=== PATIENT | female | born 1970 | race Hispanic/Latino ===

== ENCOUNTER 2021-07-03 02:11 | Observation (INO) | payer SELFPAY ==
[2021-07-03 03:08] LABS: #Eosinphils 0.1 thou/uL (0.0-0.7); #Monocytes 0.4 thou/uL (0.11-0.59); #Neutrophils 8.1 thou/uL (1.40-6.50); %Eosinophils 0.8 % (0.0-10.0); %Lymphocytes 18.6 % (21.0-51.0); %Monocytes 4.1 % (0.0-10.0); %Neutrophils 76.4 % (42.0-75.0); Hemoglobin 12.9 g/dL (12.0-16.0); Mean Corpuscular HGB CONC 33.4 g/dL (32.0-36.0); Mean Corpuscular Volume 89.9 fL (78.0-98.0); Mean Platelet Volume 6.6 fL (7.4-10.4); Platelet Count 286 thou/uL (130-400); RBC Distribution Width 12.9 % (11.5-14.5); Red Blood Cell (RBC) Count 4.31 mill/uL (4.20-5.40); White Blood Cell (WBC) Count 10.6 thou/uL (4.8-10.8)
[2021-07-03] MEDS ORDERED: Ondansetron PF 4 MG/2 ML Vial ONE ×2 (03:21→13:46)
[2021-07-03] MEDS ORDERED: Morphine 4 MG/ML VIAL ONE (03:21)
[2021-07-03 03:24] LABS: ALT (SGPT) 102 U/L (8-55); AST (SGOT) 192 U/L (5-34); Albumin 4.1 g/dL (3.5-5.0); Alkaline Phosphatase 113 U/L (40-110); Anion Gap 16 mmol/L (10-20); BUN (Urea Nitrogen) 26 mg/dL (9.8-20.1); Bilirubin, Total 0.7 mg/dL (0.2-1.2); Calc. Creatinine Clearance 0 mL/min (70-130); Calcium 9.1 mg/dL (7.8-10.44); Carbon Dioxide 23 mmol/L (22-29); Chloride 102 mmol/L (98-107); Globulin 3.3 g/dL (2.4-3.5); Glucose 168 mg/dL (70-105); Potassium 3.7 mmol/L (3.5-5.1); Protein, Total 7.4 g/dL (6.0-8.3); Sodium 137 mmol/L (136-145)
[2021-07-03 03:45] LABS: Bacteria/HPF None Seen HPF (None Seen); Bilirubin Negative (Negative); Blood, Urine Negative (Negative); Calcium Oxalate Crystals 4+ HPF (None Seen); Clarity Clear (Clear); Glucose, Urine (Dipstick) Normal (Negative); Ketone, Urine Negative (Negative); Leukocyte 75 Leu/uL (Negative); Mucous/LPF 3+ LPF (<2+); Nitrite Negative (Negative); Protein, Urine (Dipstick) 20 mg/dL (Neg-Trace); RBC/HPF 0-3 HPF (0-3); Specific Gravity, Urine 1.031 (1.002-1.036); Squamous Epithelial 0-3 HPF (0-3); Urobilinogen Normal mg/dL (Less than 2); WBC/HPF 0-3 HPF (0-3)
[2021-07-03] MEDS ORDERED: Levofloxacin 500 mg/D5W 100 ml Premix Bag ONE (04:40)
[2021-07-03] MEDS ORDERED: Ketorolac Tromethamine 30 MG/ML VIAL IVP PRN ×2 (04:44→14:29)
[2021-07-03] MEDS ORDERED: Ondansetron PF 4 MG/2 ML Vial IVP PRN ×2 (04:45→11:24)
[2021-07-03] MEDS ORDERED: Ondansetron ODT 4 MG TAB SL PRN (04:45)
[2021-07-03] MEDS ORDERED: Morphine 4 MG/ML VIAL SLOW IVP PRN (04:45)
[2021-07-03 05:54] LABS: SARS-CoV-2 NAA Rapid Test Not Detected (NotDetected)
[2021-07-03 06:33] VITALS: BMI 35.8
[2021-07-03] MEDS: Sodium Chloride 0.9% 1,000 ML IV SCH ×2 (08:19→17:20)
[2021-07-03] MEDS ORDERED: Ondansetron ODT 8 MG TAB PO PRN (11:24)
[2021-07-03] MEDS ORDERED: Ketorolac Tromethamine 30 MG/ML VIAL IVP SCH (11:30)
[2021-07-03] MEDS ORDERED: Iopamidol 30 ML ONE (12:54)
[2021-07-03] MEDS ORDERED: Lidocaine 1% w/Epinephrine 1:100K 20 ML VIAL ONE (12:54)
[2021-07-03] MEDS ORDERED: Bupivacaine 0.25% 10 ML VIAL ONE (12:54)
[2021-07-03] MEDS ORDERED: Midazolam HCl 2 mg/2 ml Vial ONE ×2 (13:19→14:52)
[2021-07-03] MEDS ORDERED: Lidocaine 2% Jelly 5 ML TUBE ONE (13:20)
[2021-07-03] MEDS ORDERED: HYDROmorphone 0.5 MG/0.5 ML SYRINGE ONE (13:20)
[2021-07-03] MEDS ORDERED: fentaNYL Citrate/PF 100 MCG/2 ML SYRINGE ONE (13:20)
[2021-07-03] MEDS ORDERED: PROPOFOL 200 MG/20 ML VIAL ONE (13:46)
[2021-07-03] MEDS ORDERED: Rocuronium Bromide 10 MG/ML (10ML VIAL) ONE (13:46)
[2021-07-03] MEDS ORDERED: Lidocaine 1% PF 5 ML VIAL ONE (13:46)
[2021-07-03] MEDS ORDERED: Dexamethasone 20 MG/5 ML VIAL ONE (13:46)
[2021-07-03] MEDS ORDERED: Promethazine HCl 25 MG/ML VIAL IVPB PRN (14:03)
[2021-07-03] MEDS ORDERED: Promethazine HCl 25 MG/ML VIAL IM PRN (14:03)
[2021-07-03] MEDS ORDERED: Ondansetron HCl/PF 4 MG/2 ML Vial IVP PRN (14:03)
[2021-07-03] MEDS ORDERED: Acetaminophen 500 MG TAB PO PRN (14:29)
[2021-07-03] MEDS ORDERED: traMADol HCl 50 MG TAB PO PRN (14:29)
[2021-07-03] MEDS ORDERED: Indomethacin 50 MG SUPP ONE (14:45)
[2021-07-03] MEDS ORDERED: Iopamidol 45 ML ONE (14:46)
[2021-07-03] MEDS ORDERED: PROPOFOL 0 ML ONE (14:52)
[2021-07-03] MEDS ORDERED: SUGAMMADEX SODIUM 200 MG/2 ML VIAL ONE (15:28)
[2021-07-04 06:19] LABS: ALT (SGPT) 378 U/L (8-55); AST (SGOT) 221 U/L (5-34); Albumin 3.6 g/dL (3.5-5.0); Alkaline Phosphatase 136 U/L (40-110); Anion Gap 11 mmol/L (10-20); BUN (Urea Nitrogen) 11 mg/dL (9.8-20.1); Bilirubin, Total 0.8 mg/dL (0.2-1.2); Calc. Creatinine Clearance 147 mL/min (70-130); Calcium 8.5 mg/dL (7.8-10.44); Carbon Dioxide 23 mmol/L (22-29); Chloride 107 mmol/L (98-107); Glucose 128 mg/dL (70-105); Potassium 3.2 mmol/L (3.5-5.1); Protein, Total 6.6 g/dL (6.0-8.3); Sodium 138 mmol/L (136-145)
[2021-07-04 06:23] LABS: #Lymphocytes 0.4 thou/uL (1.20-3.40); #Monocytes 0.3 thou/uL (0.11-0.59); #Neutrophils 9.8 thou/uL (1.40-6.50); %Eosinophils 0.1 % (0.0-10.0); %Lymphocytes 3.6 % (21.0-51.0); %Monocytes 2.7 % (0.0-10.0); %Neutrophils 93.6 % (42.0-75.0); Hemoglobin 12.7 g/dL (12.0-16.0); Hypochromia SLIGHT = 6-15 cells (100X) (0-5/hpf); MDiff Complete? YES; Mean Corpuscular HGB CONC 27.4 g/dL (32.0-36.0); Mean Corpuscular Hemoglobin 25.2 pg (27.0-31.0); Mean Corpuscular Volume 91.7 fL (78.0-98.0); Mean Platelet Volume 6.8 fL (7.4-10.4); Platelet Count 186 thou/uL (130-400); Platelet Morphology Comment Appears Adequate; Polychromasia SLIGHT = 2-3 cells (100X) (0-2/hpf); RBC Distribution Width 13.9 % (11.5-14.5); Red Blood Cell (RBC) Count 5.04 mill/uL (4.20-5.40); White Blood Cell (WBC) Count 10.4 thou/uL (4.8-10.8)
[2021-07-04] MEDS ORDERED: Polyethylene Glycol 3350 17 GM Packet PO SCH (09:00)
[2021-07-04] MEDS ORDERED: Potassium Chloride 20 MEQ TAB PO SCH (11:00)
[2021-07-04 15:35] VITALS: BP 109/72; TEMP 97.2
== END 2021-07-04 16:08 | disposition home or self-care (01) ==
LOC: ERS 02:11 → SURG B 04:33
PROVIDERS: ADMIT Specialist; ATTEND Specialist
PROC: 0FT44ZZ Resection of Gallbladder, Percutaneous Endoscopic Approach (ICD-10-PCS; principal; 2021-07-03)
PROC: BF101ZZ Fluoroscopy of Bile Ducts using Low Osmolar Contrast (ICD-10-PCS; 2021-07-03)
PROC: 0F798ZZ Dilation of Common Bile Duct, Via Natural or Artificial Opening Endoscopic (ICD-10-PCS; 2021-07-03)
PROC: 0FC98ZZ Extirpation of Matter from Common Bile Duct, Via Natural or Artificial Opening Endoscopic (ICD-10-PCS; 2021-07-03)
DX: K80.66 Calculus of gallbladder and bile duct with acute and chronic cholecystitis without obstruction (principal); K83.8 Other specified diseases of biliary tract; I10 Essential (primary) hypertension; E78.5 Hyperlipidemia, unspecified; K76.0 Fatty (change of) liver, not elsewhere classified; E66.9 Obesity, unspecified; Z68.35 Body mass index [BMI] 35.0-35.9, adult; Z20.822 Contact with and (suspected) exposure to COVID-19
CPT/HCPCS: 36415; 47532; 74330; 76705; 80053; 81003; 81015; 83690; 85025; 87086; 88304; 93005; 96365; 96375; 96376; C1713; G0378; J1100; J1170; J1610; J1956; J2250; J2270; J2405; J2704; J7050; Q9967; S0020; U0002